=== PATIENT | male | born 1965 | race Caucasian/White ===

== ENCOUNTER 2019-10-31 07:35 | Emergency (ER) | payer OTHER ==
[2019-10-31] MEDS ORDERED: Lidocaine 2% with EPINEPHrine 1:100,000 20 ML MDV INJECT ONE (08:00)
[2019-10-31] MEDS ORDERED: Lidocaine 2% with EPINEPHrine 1:100,000 20 ML MDV ONE (08:00)
--- NOTE | 2019-10-31 08:21 | EDM.PDOC ---
ED HPI GENERAL MEDICAL PROBLEM - General Chief Complaint: Laceration Stated Complaint: left head injury Time Seen by Provider: 10/31/19 07:45 Source of Information: Reports: Patient History Limitations: Reports: No Limitations - History of Present Illness INITIAL COMMENTS - FREE TEXT/NARRATIVE: Hit left front scalp against metal object Has laceration on left frontal scalp at hairline Tetanus UTD Is on Coumadin Onset: Today, Sudden Duration: Hour(s): Location: Reports: Head Context: Reports: Trauma Treatments HURL SHAKER: Reports: Cold Therapy, Dressing(s) Left Head Pain Score (Numeric/FACES): 2 - Related Data Allergies Allergy/AdvReac Type Severity Reaction Status Date / Time codeine Allergy Hives Verified 10/31/19 07:36 Penicillins Allergy Hives Verified 10/31/19 07:36 Home Meds: Home Meds Aspirin 81 mg PO DAILY 10/31/19 [History] Fenofibrate Nanocrystallized [Tricor] 1 tab PO DAILY 10/31/19 [History] Metoprolol Tartrate [Lopressor] 25 mg PO DAILY 10/31/19 [History] Rosuvastatin [Crestor] 10 mg PO DAILY 10/31/19 [History] Warfarin [Coumadin] 5 mg PO ASDIRECTED 10/31/19 [History] Warfarin [Coumadin] 7.5 mg PO ASDIRECTED 10/31/19 [History] lisinopriL [Lisinopril] 10 mg PO DAILY 10/31/19 [History] Past Medical History HEENT History: Reports: Allergic Rhinitis Cardiovascular History: Reports: Arrhythmia, High Cholesterol, Hypertension Gastrointestinal History: Reports: GERD Social & Family History - Tobacco Use Smoking Status *Q: Never Smoker ED ROS GENERAL - Review of Systems Review Of Systems: See Below Skin: Reports: Wound ED EXAM, SKIN/RASH Exam: See Below Exam Limited By: No Limitations General Appearance: Alert, No Apparent Distress Head: Other (Left frontal scalp with 2 cm laceration Minimal bleeding Stellate laceration) ED SKIN PROCEDURES - Laceration/Wound Repair Left Head Appearance: Superficial, Stellate Anesthetic Type: Local Local Anesthesia - Lidocaine (Xylocaine): 2% with EPI Local Anesthetic Volume: 3cc Skin Prep: Providone-Iodine (Betadine) Closed with: Sutures Lac/Wound length In cm: 2 Suture Size: 3-0 # of Sutures: 2 Tetanus Status Addressed: Yes Course - Vital Signs Last Recorded V/S: Last Vital Signs Temp 98.5 F 10/31/19 07:41 Pulse 63 10/31/19 08:15 Resp 16 10/31/19 07:41 BP 136/84 10/31/19 08:15 Pulse Ox 100 10/31/19 07:41 - Orders/Labs/Meds Meds: Medications Discontinued Medications Generic Name Dose Route Start Last Admin Trade Name Margarette PRN Reason Stop Dose Admin Lidocaine/Epinephrine 20 ml 10/31/19 08:00 10/31/19 08:02 Xylocaine 2% With Epinephrine 1:100,000 INJECT 10/31/19 08:01 20 ml ONETIME ONE Administration Lidocaine/Epinephrine Confirm 10/31/19 08:00 10/31/19 08:03 Xylocaine 2% With Epinephrine 1:100,000 Administered 10/31/19 08:01 Not Given Dose 20 ml .ROUTE .STK-MED ONE Departure - Departure Time of Disposition: 08:30 Disposition: Home, Self-Care 01 Clinical Impression: Scalp laceration Qualifiers: Encounter type: initial encounter Qualified Code(s): S01.01XA - Laceration without foreign body of scalp, initial encounter - Discharge Information *PRESCRIPTION DRUG MONITORING PROGRAM REVIEWED*: Not Applicable *COPY OF PRESCRIPTION DRUG MONITORING REPORT IN PATIENT KEVEN: Not Applicable Instructions: Laceration Care, Adult Referrals: Omar Matthews MD [Primary Care Provider] - Additional Instructions: Keep wound clean Sutures out in 10 days Sepsis Event Note - Evaluation Sepsis Screening Result: No Definite Risk - Focused Exam Vital Signs: Vital Signs Temp Pulse Resp BP Pulse Ox 10/31/19 08:15 63 136/84 10/31/19 07:41 98.5 F 71 16 160/96 H 100 Date Exam was Performed: 10/31/19 Time Exam was Performed: 08:16
== END 2019-10-31 08:37 | disposition home or self-care (01) ==
LOC: LL.ED 07:35
DX: S01.01XA Laceration without foreign body of scalp, initial encounter (principal); E78.00 Pure hypercholesterolemia, unspecified; I10 Essential (primary) hypertension; K21.9 Gastro-esophageal reflux disease without esophagitis; Z88.5 Allergy status to narcotic agent; Z88.0 Allergy status to penicillin; Z79.82 Long term (current) use of aspirin; Z79.01 Long term (current) use of anticoagulants; Z79.899 Other long term (current) drug therapy; W26.8XXA Contact with other sharp object(s), not elsewhere classified, initial encounter
CPT/HCPCS: 12001; 99282

== ENCOUNTER 2022-12-05 14:51 | Emergency (ER) | payer BC, OTHER ==
[2022-12-05 15:01] VITALS: BP 125/77; PULSE 79
[2022-12-05 16:12] LABS: ANION GAP 11.3 meq/L (7-15); CHLORIDE,CL 101 mmol/L (98-107); SODIUM,NA 141 mmol/L (136-145)
[2022-12-05 16:16] LABS: ESTIMATED GFR 76 mL/min (>=60)
[2022-12-05] MEDS ORDERED: Sodium Chloride 0.9% 10 ML Syringe FLUSH PRN (16:47)
[2022-12-05] MEDS: Iopamidol 612 MG/ML 100 ML Bottle IVPUSH ONE (17:09)
[2022-12-05 17:13] LABS: PTT,PARTIAL THROMBOPLSTIN TIME 33.3 SEC (23.6-29.8)
== END 2022-12-05 17:42 | disposition home or self-care (01) ==
LOC: LL.ED 14:51
DX: R10.13 Epigastric pain (principal); K21.9 Gastro-esophageal reflux disease without esophagitis; I10 Essential (primary) hypertension; Z88.5 Allergy status to narcotic agent; Z79.01 Long term (current) use of anticoagulants; Z79.899 Other long term (current) drug therapy
CPT/HCPCS: 36415; 74022; 74177; 80053; 81003; 82150; 83690; 83735; 84100; 84484; 85025; 85610; 85730; 86140; 93005; 93010; 99284; Q9967